=== PATIENT | male | born 2000 | race American Indian/Alaskan Native ===

== ENCOUNTER 2020-01-16 11:14 | Emergency (ER) | payer SELFPAY ==
[2020-01-16 11:45] VITALS: BP 156/61
--- NOTE | 2020-01-16 11:47 | Emergency Department Report ---
Chief Complaint: Extremity Problem,Nontraumatic Stated Complaint: ANKLE PAIN Time Seen by Provider: 01/16/20 11:42 - HPI History of Present Illness: pt presents with an abrasion to his right ankle that began a couple of days ago does not remember hitting his leg or getting bit by anything no fall or injury no numbness or weakness states occasionally he hears popping whenever he is walking, denies ankle giving out no drainage PMHx none no allergies to meds on exam: small healing circular abrasion to the right lateral malleolus, no drainage, no increased warmth, no erythema, FROM of the right ankle, foot, and toes, achiles tendon is intact, no joint laxity, no edema, no deformity, neurovascularly intact, no calf ttp pt has had no trauma no signs of infection no signs of septic joint no signs of DVT advised pt to please wash the area with an antibacterial soap 2-3 times a day and immediately dry. may soak in epsom salt. may use neosporin or triple antibiotic ointment. follow up with an orthopedic doctor and a primary care doctor. return to the emergency room for any new or worsening symptoms. pt is presenting with a non medical emergency at this time, medical screening examination performed and there is no threat to life or limb at this time pt will be referred to orthopedic and primary care doctor discussed strict return precautions pts mother asked if he could have an rock bandage, advised to only use while walking around, do not wear too tightly, do not wear while sleeping MSE screening note: Focused history and physical exam performed. ED Disposition for MSE Clinical Impression: Abrasion, right ankle, initial encounter Right ankle pain Qualifiers: Chronicity: acute Qualified Code(s): M25.571 - Pain in right ankle and joints of right foot Disposition: Z-07 MED SCREENING EXAM-LEFT Is pt being admited?: No Does the pt Need Aspirin: No Condition: Stable Instructions: Abrasion (ED), Arthralgia (ED) Additional Instructions: please wash the area with an antibacterial soap 2-3 times a day and immediately dry. may soak in epsom salt. may use neosporin or triple antibiotic ointment. follow up with an orthopedic doctor and a primary care doctor. return to the emergency room for any new or worsening symptoms. Referrals: PALMA SALINAS MD [Staff Physician] - 3-5 Days [facility] [Provider Group] - 3-5 Days DAVID GAGE MD [Staff Physician] - 3-5 Days [facility] [Outside] - 3-5 Days [facility] [place] [[place]] - 3-5 Days Time of Disposition: 11:47 Print Language: ITALIAN
== END 2020-01-16 12:16 | disposition left against medical advice (07) ==
LOC: ED 11:14
DX: S90.511A Abrasion, right ankle, initial encounter (principal); X58.XXXA Exposure to other specified factors, initial encounter; Y93.89 Activity, other specified; Y92.89 Other specified places as the place of occurrence of the external cause; Y99.8 Other external cause status
CPT/HCPCS: 99282